=== PATIENT | female | born 1950 | race Caucasian/White ===

== ENCOUNTER → 2016-03-09 | Outpatient (CLI) | payer MEDICARE, SELFPAY ==
--- NOTE | 2016-03-09 14:10 | XR ---
EXAMINATION TYPE: XR chest 2V DATE OF EXAM: 03/09/2016 1:45 PM COMPARISON: NONE HISTORY: Preop back surgery TECHNIQUE: Frontal and lateral views of the chest are obtained. FINDINGS: There is no focal air space opacity, pleural effusion, or pneumothorax seen. The cardiac silhouette size is within normal limits. Prominent lung volume could be indicative of COPD. The osseo us structures are intact. IMPRESSION: No acute cardiopulmonary process.
== END | disposition home or self-care (01) ==
LOC: RADXRMAIN 13:33
PROVIDERS: ATTEND Orthopaedic Surgery Orthopaedic Surgery of the Spine
DX: Z01.818 Encounter for other preprocedural examination (principal)
CPT/HCPCS: 71020; 86850; 86900; 86901

== ENCOUNTER 2016-03-17 09:40 | Day surgery (SDC) | payer MEDICARE, SELFPAY ==
[2016-03-10 14:31] VITALS: BMI 28.7
--- NOTE | 2016-03-12 13:33 | CONS ---
DATE OF CONSULTATION: Mrs. Moore is a 65-year-old female who is having surgery of the lower back, lumbar L4-L5 area, by Dr. Escamilla scheduled for the of this month at [facility]. I am asked to see her regarding her medical concerns, management and clearance. Patient does have a history of hyperlipidemia, along with a previous history of non-Hodgkin's lymphoma. She also has underlying nicotine dependence. She has had previous surgeries that include tonsillectomy, hysterectomy, appendectomy and cholecystectomy in the past. There is a history also of restless leg syndrome. She does have a history of allergies to CODEINE. There is no history of myocardial infarction, diabetes, or stroke. Her home medications include Cymbalta 20 mg. She has been on aspirin 81 mg daily but has been off of that for at least the week prior to surgery, Baclofen 10 mg once or twice a day as a muscle relaxant as needed, tramadol 50 mg as needed for pain. She has also been on Plavix 75 mg but that is stopped a week prior to her surgery and ropinirole 0.25 mg at bedtime for restless leg. No complaints of chest pain, shortness of breath, fever, chills, or cough. No nausea, vomiting. No urinary or bowel symptoms. FAMILY HISTORY: Positive for heart disease, diabetes. SOCIAL HISTORY: Once again, she does smoke, but only drinks occasional alcohol. She lives locally in the [facility]. On physical examination, she is alert and oriented, pleasant female in no acute distress with a blood pressure 114/60. Her BMI is 29.1. Head and neck exam was unremarkable. Extraocular movements were intact. Neck is supple without adenopathy, thyromegaly or bruits. LUNGS: Clear to auscultation and percussion. HEART: Regular without murmurs. ABDOMEN: Soft and nontender. Breasts and pelvic exam deferred. Extremities revealed no distal edema. NEUROLOGICAL: She is alert and oriented. Cranial nerves intact. No focal deficits Her EKG revealed a regular sinus rhythm, some left axis changes, but no definite ischemic changes. There was a short MT interval noted. Laboratory values revealed random blood sugar of 122. Otherwise electrolytes were unremarkable. Her BUN was 23 creatinine 0.71. Potassium 4. GFR is 89. Her PTT was 27. Her INR was 1.1. White count 6.5 with a hemoglobin 15.2 and a platelet count of 332. She also did have a chest x-ray which showed no acute cardiopulmonary process. At this point overall impression, the patient is scheduled for lumbar surgery. Cardiovascular status appears stable. She will remain off her anti-inflammatory medicines. At this point, I see no contraindication to planned surgical involvement regarding her lower lumbar area. Please call if any questions, concerns or problems. PRESTON
[~2016-03-17 09:40] MED LIST: BACITRACIN 50,000 UNIT, POLYMYXIN B 500,000 UNIT in SODIUM CHLORIDE 0.9% IRRIGATIO 1,00... IRRIGATION ONE; DEXAMETHASONE SOD PHOSPHATE 10 MG/ML 1 ML VIAL IV ONE; HYDROmorphone 1 MG/ML 1 ML SYRINGE IVP PRN; LACTATED RINGERS 1,000 ML IV SCH; MIDAZOLAM 2 MG/2 ML VIAL IV PRN; ONDANSETRON 4 MG/2 ML VIAL IVP ONE; ceFAZolin 2 GM in SODIUM CHLORIDE 0.9% 100 ML IVPB ONE
[2016-03-17] MEDS ORDERED: LIDOCAINE 1% 20 ML VIAL (10MG/ML) FOR IV START INTRADERMA ONE (10:50)
[2016-03-17] MEDS ORDERED: MIDAZOLAM 2 MG/2 ML VIAL ONE (12:24)
[2016-03-17] MEDS ORDERED: PROPOFOL 10 MG/ML 20 ML VIAL IV ONE (12:24)
[2016-03-17] MEDS ORDERED: LIDOCAINE 0.5%-EPI 1:200,000 50 ML VIAL SQ ONE (12:24)
[2016-03-17] MEDS ORDERED: LIDOCAINE 1% INJ 10MG/ML (20 ML MDV) ONE (12:24)
[2016-03-17] MEDS ORDERED: NEOSTIGMINE 1 MG/ML 10 ML VIAL ONE (12:24)
[2016-03-17] MEDS ORDERED: GELATIN SPONGE,ABSORB (LARGE) 1 EACH SPONGE TOPICAL ONE (12:24)
[2016-03-17] MEDS ORDERED: ePHEDrine 50 MG/ML 1 ML AMP ONE (12:24)
[2016-03-17] MEDS ORDERED: methylPREDNISolone ACETATE 40 MG/ML 1 ML VIAL MISCELLANE ONE (12:24)
[2016-03-17] MEDS ORDERED: GLYCOPYRROLATE 0.2 MG/ML 2 ML VIAL ONE (12:24)
[2016-03-17] MEDS ORDERED: VECURONIUM 10 MG VIAL IV ONE (12:24)
[2016-03-17] MEDS ORDERED: THROMBIN (BOVINE) 5,000 UNIT VIAL TOPICAL ONE (12:24)
[2016-03-17] MEDS ORDERED: SUCCINYLCHOLINE CHLORIDE 100 MG/5 ML SYR IV ONE (12:24)
[2016-03-17] MEDS ORDERED: fentaNYL (PF) 50 MCG/ML 2 ML AMP ONE (12:24)
[2016-03-17] MEDS ORDERED: LACTATED RINGERS 1,000 ML IV ONE (13:33)
--- NOTE | 2016-03-17 13:47 | XR ---
EXAM TYPE: LUMBAR SPINE X RAY SERIES COMPARISON: NONE HISTORY: Intraoperative procedure FINDINGS: Single view demonstrates a metallic instrument posterior to a lower lumbar segment. IMPRESSION: 1. Intraoperative localization..
--- NOTE | 2016-03-17 13:48 | FL ---
EXAMINATION TYPE: FL guidance operating room DATE OF EXAM: 03/17/2016 1:07 PM HISTORY: Flouroscopy time 1 seconds of fluoroscopy provided. IMPRESSION: 1. Fluoroscopy time.
[2016-03-17] MEDS ORDERED: KETOROLAC 30 MG/ML 1 ML VIAL IVP PRN (13:52)
[2016-03-17] MEDS ORDERED: DIAZEPAM 5 MG TAB PO PRN (13:52)
[2016-03-17] MEDS ORDERED: HYDROmorphone 1 MG/ML 1 ML SYRINGE IVP PRN ×2 (13:52)
[2016-03-17] MEDS ORDERED: IBUPROFEN 600 MG TAB PO PRN (13:52)
[2016-03-17] MEDS ORDERED: ONDANSETRON 4 MG/2 ML VIAL IVP PRN (13:52)
[2016-03-17] MEDS ORDERED: BENZOCAINE/MENTHOL LOZENG 1 EACH LOZENGE MUCOUS MEM PRN (13:52)
[2016-03-17] MEDS ORDERED: ACETAMINOPHEN PO PRN (13:54)
[2016-03-17] MEDS ORDERED: DIPHENHYDRAMINE PO PRN (13:54)
--- NOTE | 2016-03-17 13:58 | P.OP ---
Date of Procedure: 03/17/16 Preoperative Diagnosis: Spinal stenosis L4 5, herniated nucleus pulposis L4 5, neurogenic claudication, radiculopathy Postoperative Diagnosis: same Anesthesia: GETA Pathology: none sent Condition: stable Disposition: PACU Description of Procedure: BRIEF OPERATIVE NOTE Preoperative Diagnosis: Spinal stenosis L4 5, herniated nucleus pulposus L4 5, neurogenic claudication, lower extremity radiculopathy Postoperative Diagnosis: Same Procedure: Laminectomy and decompression L4 5 bilateral foraminotomies Discectomy for decompression L4 5 Surgeon: Dr. Escamilla Questioned Documents Examiner: Omid Hogan is present throughout the entire the case persistence during positioning, dissection, exposure, visualization, and all crucial elements of the case as well as closure. Anesthesia: General anesthesia Estimated blood loss: Approximately 100 mL Complications: None apparent Components implanted: None Disposition: To recovery room in good stable condition. OPERATIVE INDICATIONS The patient has been having issues in their lower back and lower extremities. She is found have significant spinal stenosis with severe stenosis centrally in the bilateral neural foramen at L4 5 with a disc herniation L4 5. Her symptoms correlate well with the findings of stenosis and herniation at L4 5. The patient has been through conservative treatment. We discussed various treatment options including surgery, and the patient wishes to proceed with surgery We discussed the risk, patient's alternatives and benefits of surgery including but not limited to, risk of bleeding risk of infection, risk of need for further surgery, risk of decreased, loss of motion, loss of function, nerve damage, paralysis, heart attack, blindness and . OPERATIVE SUMMARY After discussing all the risks, patient alternatives and benefits at length, the patient elected to proceed with surgical intervention, signed informed consent, and presented for their procedure. The patient was seen and examined in the preoperative holding area and the surgical site was marked. The patient was given antibiotics and brought to the operating room. The patient was sedated and intubated by anesthesia in standard fashion. The patient was positioned on to the operating room table in a prone position on the appropriate frame which was well-padded and well molded. We were careful to pad any bony prominences and pressure points. We were careful to maintain the patient's cervical spine and good neutral alignment and position throughout. The patient was prepped and draped in a normal standard fashion. An appropriate timeout and keystone protocol performed. We were able to proceed with the surgery. Fluoroscopy was utilized to establish the appropriate level. The local wound area was infiltrated with local anesthetic. An incision was made at the midline longitudinally over the appropriate levels at L4 5. Dissection was taken down subcutaneously to the level of the fascia which was split midline. Dissection was taken over the lamina. Intraoperative fluoroscopy was taken which showed a marker at the appropriate level at L4 5. With the appropriate level positively confirmed, we were able to proceed with laminectomy. The wound was copiously irrigated and suctioned dry as had been done periodically throughout the case. I performed a laminectomy with a combination of curettes and a high-speed bur and Kerrison rongeurs. A small medial facetectomy was performed again further access. A partial foraminotomy was also performed. I was able to work across the midline into laminectomy and decompression centrally and at the right. Portions of the ligamentum flavum were taken down to expose the dura and traversing nerve root. I was able to mobilize the traversing nerve root and gain access to the disc space on the left. Note was made of obvious compression from the disc. Protecting the soft tissue structures, a small annulotomy was established. I was able to perform discectomy and remove any extruded disc fragments and any loose fragments from within the disc itself. There is some disc desiccation noted. I tried to preserve the disc annulus that appeared stable. There were no further extruded fragments noted. There is no evidence of dural tear or leak. Good hemostasis maintained. The wound was copiously irrigated and suctioned dry. Good decompression and discectomy was noted. We were able to proceed with closure. The fascia was closed for a watertight closure. The subcuticular tissue was closed with absorbable suture. The wound was cleaned and dried and dressed with the appropriate dressing. The drapes were broken down. The patient was gently rolled back onto their hospital bed being careful to maintain their cervical spine and good neutral alignment and position. They were woken up by anesthesia, extubated, and brought to the recovery room in good stable condition. The patient will be admitted to the hospital for observation and for appropriate postoperative care, medical management and monitoring. We will continue to follow them closely about the postoperative course.
[2016-03-17] MEDS ORDERED: SODIUM CHLORIDE 0.9% 1,000 ML IV SCH (14:00)
[2016-03-17 14:15] VITALS: TEMP 97.5
[2016-03-17 14:22] VITALS: RESP 16
[2016-03-17] MEDS ORDERED: ceFAZolin 2 GM in SODIUM CHLORIDE 0.9% 100 ML IVPB SCH (16:00)
[2016-03-17 16:38] VITALS: BP 124/67; PULSE 63
[2016-03-17] MEDS ORDERED: DILTIAZEM ORAL 60 MG TAB PO SCH (21:00)
[2016-03-18] MEDS ORDERED: CLOPIDOGREL 75 MG TAB PO SCH (09:00)
[2016-03-18] MEDS ORDERED: NON-FORMULARY DRUG (Aspirin Ec 81 MG) PO SCH (09:00)
== END 2016-03-17 16:28 | disposition home or self-care (01) ==
LOC: OR 09:40 → EDSTATUS 12:15 → OR 16:28
PROVIDERS: ATTEND Orthopaedic Surgery Orthopaedic Surgery of the Spine
DX: M51.26 Other intervertebral disc displacement, lumbar region (principal); M48.06 Spinal stenosis, lumbar region; I73.9 Peripheral vascular disease, unspecified; M54.16 Radiculopathy, lumbar region; G25.81 Restless legs syndrome; E78.5 Hyperlipidemia, unspecified; F17.200 Nicotine dependence, unspecified, uncomplicated; Z88.5 Allergy status to narcotic agent; Z79.02 Long term (current) use of antithrombotics/antiplatelets; Z79.82 Long term (current) use of aspirin; Z79.899 Other long term (current) drug therapy; Z85.72 Personal history of non-Hodgkin lymphomas
CPT/HCPCS: 63030; 72020; J2250; J1030; J2710; J0690; J2405; J2001; J3010; J0330; J2704; 86850; 86900; 86901

== ENCOUNTER → 2021-04-23 | Outpatient (CLI) | payer MEDICARE ==
--- NOTE | 2021-04-23 08:30 | US ---
EXAMINATION TYPE: US carotid duplex BILAT DATE OF EXAM: 04/23/2021 COMPARISON: NONE CLINICAL HISTORY: I65.23 LORIE CAROTID ARTERY STENOSIS. stenosis EXAM MEASUREMENTS: RIGHT: Peak Systolic Velocity (PSV) cm/sec ----- Right CCA: 93.8 ----- Right ICA: 190 ----- Right ECA: 128 ICA/CCA ratio: 2.0 RIGHT: End Diastole cm/sec ----- Right CCA: 16.1 ----- Right ICA: 37.2 ----- Right ECA: 0 LEFT: Peak Systolic Velocity (PSV) cm/sec ----- Left CCA: 94.8 ----- Left ICA: 128 ----- Left ECA: 118 ICA/CCA ratio: 1.3 LEFT: End Diastole cm/sec ----- Left CCA: 14.4 ----- Left ICA: 21.6 ----- Left ECA: 0 VERTEBRALS (direction of flow): Right Vertebral: Left Vertebral: Rhythm: Normal Intimal thickening is present. A small plaque is present at the right carotid bulb. Turbulent flow is within the common carotid artery on the right. IMPRESSION: 1. Intimal thickening and atheromatous plaquing contributing to bilateral internal carotid artery antony rowing. This is moderate on the right between 50 and 69%, closer to the lower and. Elevated velocity on the left is also moderate narrowing between 50 and 69% but at the upper end. Criteria for Assigning % of Stenosis / Diameter reduction (Estimation based on the indirect measurements of the internal carotid artery velocities (ICA PSV). 1. Normal (no stenosis)=ICA PSV < 125 cm/s: ratio < 2.0: ICA EDV<40 cm/s. 2. Less than 50% stenosis=ICA PSV < 125 cm/s: ratio < 2.0: ICA EDV<40 cm/s. 3. 50 to 69% stenosis=ICA PSV of 125 to 230 cm/s: ration 2.0 ? 4.0: ICA EDV 40-100 cm/s. 4. Greater than 70% stenosis to near occlusion= ICA PSV > 230 cm/s: ratio > 4.0: ICA EDV > 100 cm/s. 5. Near occlusion= ICA PSV velocities may be low or undetectable: variable ratio and ICA EDV. 6. Total occlusion=unable to detect flow.
--- NOTE | 2021-04-23 10:00 | ECHOF ---
Referral Reason:I10, I65.23 MEASUREMENTS -------- HEIGHT: 157.5 cm WEIGHT: 73.9 kg BP: 158/68 RVIDd: 2.5 cm (< 3.3) IVSd: 1.3 cm (0.6 - 1.1) LVIDd: 3.6 cm (3.9 - 5.3) LVPWd: 1.3 cm (0.6 - 1.1) IVSs: 1.6 cm LVIDs: 2.7 cm LVPWs: 1.7 cm LA Diam: 3.2 cm (2.7 - 3.8) LAESV Index (A-L): 20.34 ml/m Ao Diam: 2.5 cm (2.0 - 3.7) AV Cusp: 1.8 cm (1.5 - 2.6) MV EXCURSION: 14.273 mm (> 18.000) MV EF SLOPE: 33 mm/s (70 - 150) EPSS: 0.2 cm MV E Lizandro: 0.99 m/s MV DecT: 294 ms MV A Lizandro: 0.92 m/s MV E/A Ratio: 1.08 RAP: 5.00 mmHg RVSP: 23.47 mmHg FINDINGS -------- Resting bradycardia (HR<60bpm). This was a technically adequate study. The left ventricular size is normal. There is mild concentric left ventricular hypertrophy. Overa ll left ventricular systolic function is normal with, an EF between 60 - 65 %. The right ventricle is normal in size. Normal LA size by volume 22+/-6 ml/m2. The right atrium is normal in size. Interatrial and interventricular septum intact. The aortic valve is trileaflet, and appears structurally normal. No aortic stenosis or regurgitation. The mitral valve leaflets are mildly thickened. There is trace mitral regurgitation. Mild tricuspid regurgitation present. Right ventricular systolic pressure is normal at < 35 mmHg. Trace/mild (physiologic) pulmonic regurgitation. The aortic root size is normal. Normal inferior vena cava with normal inspiratory collapse consistent with estimated right atrial pre ssure of 5 mmHg. There is no pericardial effusion. CONCLUSIONS -------- 1. The left ventricular size is normal. 2. There is mild concentric left ventricular hypertrophy. 3. Overall left ventricular systolic function is normal with, an EF between 60 - 65 %. 4. The mitral valve leaflets are mildly thickened. 5. There is trace mitral regurgitation. 6. Mild tricuspid regurgitation present. 7. Trace/mild (physiologic) pulmonic regurgitation. 8. There is no pericardial effusion. OFFICE COORDINATOR: Rosana Mckeon RDCS
== END | disposition home or self-care (01) ==
LOC: RADUSWWP 07:24
PROVIDERS: ATTEND Internal Medicine
DX: I10 Essential (primary) hypertension (principal); I65.23 Occlusion and stenosis of bilateral carotid arteries
CPT/HCPCS: 93306; 93880

== ENCOUNTER → 2021-05-21 | Outpatient (CLI) | payer MEDICARE ==
[2021-05-21 08:57] LABS: African American GFR (CKD) >90 (>60 ml/min/1.73 sqM); Blood Urea Nitrogen 16 mg/dL (7-17); Non-African American GFR(CKD) 88 (>60 ml/min/1.73 sqM)
--- NOTE | 2021-05-21 10:45 | CT ---
EXAMINATION TYPE: CT angio neck DATE OF EXAM: 05/21/2021 HISTORY: Carotid Stenosis COMPARISON: Carotid Dopplex dated 04/23/2021 CT DLP: 359.20 mGycm. Automated Exposure Control for Dose Reduction was Utilized. TECHNIQUE: CTA scan of the neck is performed with IV Contrast, patient injected with 65 mL of Isovue 370, axial images are obtained, coronal and sagittal reformatted images are reviewed. 3D reconstruct ed images are created on an independent workstation and reviewed. FINDINGS: Carotid/Vascular Structures: Scattered arterial atherosclerotic calcifications. Atherosclerotic calci fication of the proximal portion of the right internal carotid artery causing about 50% stenosis yet patent distally. About 70% stenosis of the origin of the left internal carotid artery by a partially calcified atheromatous plaque yet patent distally. Normal caliber and enhancement of the remainder of the carotid arteries in the neck as well as the visualized vertebral arteries without other signific ant stenosis, occlusion, dissection or aneurysm. Other: Scattered subcentimeter bilateral cervical lymph nodes, nonspecific. COPD changes in the visua lized portion of the lungs. 5 mm nodule is seen at the posterior aspect of the right lung apex, for f ollow-up CT scan in 12 months if high risk patient. IMPRESSION: Bilateral internal carotid artery focal stenosis, more on the left side as described above.
[2021-05-21 15:27] LABS: ALT 16 U/L (8-44); AST 15 U/L (13-35); African American GFR (CKD) 86.6 (60.0-200.0); Albumin 4.3 g/dL (3.8-4.9); Albumin/Globulin Ratio 2.26 (1.60-3.17); Alkaline Phosphatase 96 U/L (41-126); BUN/Creat Ratio 19.25 Ratio (12.00-20.00); Blood Urea Nitrogen 15.4 mg/dL (9.0-27.0); Calcium 9.7 mg/dL (8.7-10.3); Carbon Dioxide 25.7 mmol/L (20.0-27.5); Chloride 107 mmol/L (96-109); Chol/HDL Ratio 4.19 Ratio; Globulin 1.9 g/dL (1.6-3.3); Glucose 105 mg/dL (70-110); LDL Cholesterol,Calculated 140.8 mg/dL (0.0-131.0); Non-African American GFR(CKD) 74.7 (60.0-200.0); Potassium 4.8 mmol/L (3.5-5.5); Sodium 142 mmol/L (135-145); Total Protein 6.2 g/dL (6.2-8.2)
== END | disposition home or self-care (01) ==
LOC: RADCTMAIN 07:49
PROVIDERS: ATTEND Internal Medicine
DX: I65.22 Occlusion and stenosis of left carotid artery (principal)
CPT/HCPCS: 80061; 80053; 82565; 84520; 70498; 36415; Q9967

== ENCOUNTER → 2021-07-15 | Outpatient (CLI) | payer MEDICARE ==
[2021-07-15 09:11] LABS: African American GFR (CKD) >90 (>60 ml/min/1.73 sqM); Blood Urea Nitrogen 17 mg/dL (7-17); Non-African American GFR(CKD) 89 (>60 ml/min/1.73 sqM)
--- NOTE | 2021-07-15 12:06 | CT ---
EXAMINATION TYPE: CT angio abdomen pelvis DATE OF EXAM: 07/15/2021 INDICATION: Embolism and thrombosis of arteries CT DLP: 2310 mGy.cm Automated Exposure Control for Dose Reduction was Utilized. TECHNIQUE AND CONTRAST: CT scan of the abdomen and pelvis is performed without and with IV Contrast, patient injected with 10 0 ml mL of Isovue 370. MIP and 3-D reconstruction images were generated on an independent workstation and reviewed. COMPARISON: None available FINDINGS: Extensive arterial atherosclerotic calcification and plaques most evident involving the infrarenal ab dominal aorta. Reduced caliber of the inferior aspect of abdominal aorta with the opacified lumen shweta suring up to 11 mm. Infrarenal abdominal aortic ectasia is seen at that level measuring 2.6 cm. Thick atherosclerotic plaque is seen at that location with suspected mural hematoma. Complete occlusion of the left common iliac artery yet opacified distally likely via collaterals. Severe stenosis of the p roximal portion of the left external iliac artery yet patent distally. Suspected stent in the right common iliac artery which appears patent. Severe stenosis at the distal aspect of the right common iliac artery along the distal end of the stent. Opacified right external i liac artery yet of reduced caliber. Atherosclerotic yet patent celiac trunk and superior mesenteric a rtery. The inferior mesenteric artery is opacified down to the pelvis yet of reduced caliber. Markedl y atherosclerotic changes and stenosis of the renal arteries yet still opacified. Previous cholecystectomy. No definite hepatic focal lesion. Dilated intrahepatic biliary tree, CHD an d CBD, likely related to postcholecystectomy status. Unremarkable pancreas, spleen and adrenals. Scat tered bilateral renal hypodensities likely representing tiny renal cysts. Grossly unremarkable urinar y bladder. Unremarkable nondistended stomach, duodenum and small bowel. Colorectal anastomosis with s oft tissue thickening extending posteriorly to the sacrum, possibly due to chronic fibrotic changes/p ostsurgical changes however underlying lesion can't be excluded. Further PET scan assessment can be c onsidered. Scattered segments of nonspecific colonic wall thickening, please correlate with colonoscopy results. Moderate fecal loading of the colon. No pathologically enlarged abdominal or pelvic lymph nodes. No sizable ascites. Previous hysterectomy. No gross adnexal mass. Mosaic-like pattern and groundglass op acity in the lung bases, nonspecific. Please correlate clinically and with pulmonary function tests. Chronic healed fractures of the inferior pubic rami. Degenerative changes of the lower lumbar spine. IMPRESSION: Extensive arterial atherosclerotic calcification with stenosis of the opacified lumen of the infraren al abdominal aorta and complete occlusion of the left common iliac artery as detailed above. Recommen d vascular surgery consultation. Other atherosclerotic changes and incidental findings with recommend ations as detailed above.
== END | disposition home or self-care (01) ==
LOC: RADCTMAIN 08:08
PROVIDERS: ATTEND Surgery
DX: I74.3 Embolism and thrombosis of arteries of the lower extremities (principal)
CPT/HCPCS: 82565; 84520; 36415; 74174; Q9967

== ENCOUNTER → 2021-09-24 | Outpatient (CLI) | payer MEDICARE ==
[2021-09-24 14:36] LABS: HCT 46.8 % (37.2-46.3); HGB 14.3 g/dL (12.0-15.0); MCH 28.4 pg (27.0-32.0); MCHC 30.6 g/dL (32.0-37.0); Mean Platelet Volume 9.8 fL (9.5-12.2); NRBC Per 100 WBC 0 /100 WBCS (0.0-0.0); Platelet Count 334 X 10*3/uL (140-440); RBC 5.03 X 10*6/uL (4.10-5.20); RDW 13.2 % (11.5-14.5); WBC 5.86 X 10*3/uL (4.50-10.00)
[2021-09-24 14:40] LABS: African American GFR (CKD) 101.7 (60.0-200.0); Anion Gap 13.1 mmol/L (10.00-18.00); Blood Urea Nitrogen 19.4 mg/dL (9.0-27.0); Carbon Dioxide 22.9 mmol/L (20.0-27.5); Non-African American GFR(CKD) 87.8 (60.0-200.0); Potassium 4.9 mmol/L (3.5-5.5)
== END | disposition home or self-care (01) ==
LOC: LABPAT 10:04
PROVIDERS: ATTEND Internal Medicine Interventional Cardiology
DX: Z01.812 Encounter for preprocedural laboratory examination (principal); R94.39 Abnormal result of other cardiovascular function study
CPT/HCPCS: 80051; 82565; 84520; 85027

== ENCOUNTER → 2021-12-07 | Outpatient (CLI) | payer MEDICARE ==
--- NOTE | 2021-12-07 12:05 | XR ---
EXAMINATION TYPE: XR chest 2V DATE OF EXAM: 12/07/2021 COMPARISON: Chest x-ray 03/09/2016 HISTORY: COPD, cough TECHNIQUE: Frontal and lateral views of the chest are obtained. FINDINGS: There is no focal air space opacity, pleural effusion, or pneumothorax seen. The cardiac silhouette size is within normal limits. Aorta is dense. The osseous structures are intact, there is thoracic spondylosis. IMPRESSION: No acute cardiopulmonary process.
== END | disposition home or self-care (01) ==
LOC: RADXRMAIN 10:01
PROVIDERS: ATTEND Internal Medicine
DX: J44.9 Chronic obstructive pulmonary disease, unspecified (principal)
CPT/HCPCS: 71046

== ENCOUNTER → 2023-09-16 | Outpatient (CLI) | payer MEDICARE, OTHER ==
--- NOTE | 2023-09-19 08:27 | MM ---
Reason for Exam: Screening (asymptomatic). Last mammogram was performed 10 year(s) and 6 month(s) ago. Patient History: Menarche at age 13. First Full-Term at age 20. Hysterectomy at age 38. Postmenopausal. Other cancer. Colorectal cancer, age 51. Estrogen for 6 years, 4 months. Risk Values: Lashae 5 year model risk: 1.6%. NCI Lifetime model risk: 4.1%. Prior Study Comparison: 06/29/2001 Right Special View Mammogram, [facility]. 07/24/2001 Right Diagnostic Mammogram, [facility]. 01/24/2002 Bilateral Diagnostic Mammogram, [facility]. 05/23/2003 Bilateral Diagnostic Mammogram, [facility]. 12/11/2008 Bilateral Diagnostic Mammogram, [facility]. 01/05/2011 Bilateral Screening Mammogram, [facility]. 03/07/2013 Bilateral Screening Mammogram, [facility]. Tissue Density: The breasts are heterogeneously dense, which may obscure small masses. Findings: Analyzed By CAD. There is no suspicious group of microcalcifications or new suspicious mass in either breast. Overall Assessment: Benign, BI-RAD 2 Management: Screening Mammogram of both breasts in 1 year. . Patient should continue monthly self-breast exams. A clinical breast exam by your physician is recommended on an annual basis. This exam should not preclude additional follow-up of suspicious palpable abnormalities. Note on Lashae scores and lifetime risk: 1. A Lashae score greater than 3% is considered moderate risk. If this is the case, consider specialist referral to assess eligibility for a risk reducing agent. 2. If overall lifetime risk for the development of breast cancer is 20% or higher, the patient may qualify for future screening with alternating mammogram and breast MRI. Electronically signed and approved by: Bryson Munguia M.D. Radiologis
== END | disposition home or self-care (01) ==
LOC: RADMAMWWP 09:54
PROVIDERS: ATTEND Internal Medicine
DX: Z12.31 Encounter for screening mammogram for malignant neoplasm of breast (principal); R92.333 Mammographic heterogeneous density, bilateral breasts; Z78.0 Asymptomatic menopausal state
CPT/HCPCS: 77063; 77067

== ENCOUNTER → 2023-12-09 | Outpatient (CLI) | payer MEDICARE ==
--- NOTE | 2023-12-09 13:09 | CTL ---
EXAMINATION TYPE: CT Low Dose Lung DATE OF EXAM ORDERED: 12/09/2023 HISTORY: Nicotine dependence, quit smoking one year ago. Lung cancer screening CT DLP: 88.[address] CTDI: 2.4 mGy Automated exposure control for dose reduction was used. SCREENING VISIT: First screening visit COMPARISON: Chest radiograph 12/07/2021 TECHNIQUE: Low dose computed tomography scan was performed through the chest at 1 mm thick sections a nd reconstructed images in multiple planes at 1 mm and [address] DIAGNOSTIC QUALITY: Satisfactory FINDINGS: Nodules: Left upper lobe 2.5 mm pulmonary nodule (series 6, image 18). Peripheral left lower lobe 3.3 mm pulmonary nodule (series 6, image 38). Posterior right upper lobe 4.6 mm pulmonary nodule (series 6, image 20). LUNGS: COPD: Severity: Minimal Fibrosis: Severity: None Lymph nodes: None Other findings: Linear scarring or atelectasis within the medial aspect of the right middle lobe and lingula. RIGHT PLEURAL SPACE: Effusion: None Calcification: None Thickening: None Pneumothorax: None LEFT PLEURAL SPACE: Effusion: None Calcification: None Thickening: None Pneumothorax: None HEART: Heart Size: Normal Coronary Calcification: Moderate Pericardial Effusion: None OTHER FINDINGS: Upper abdomen: Bilateral renal calcifications which may be nonobstructive calculi versus vascular zina cifications. Bony thorax: Multilevel degenerative disc disease. Supraclavicular region: None Other: Moderate atherosclerotic calcification of the aorta and its branches. IMPRESSION: Few pulmonary nodules measuring less than [address] LUNG RAD AND CT CHEST RECOMMENDATION: Lung-Rad 2 Benign Appearance or Behavior: Continue annual sc reening with LDCT in 12 months. S Modifier (other clinically significant findings): None [facility], , 12/09/2023 1:07 PM
== END | disposition home or self-care (01) ==
LOC: RADCTMAIN 12:37
PROVIDERS: ATTEND Internal Medicine
CPT/HCPCS: 71271

== ENCOUNTER → 2023-12-16 | Outpatient (CLI) | payer MEDICARE ==
--- NOTE | 2023-12-19 17:33 | BD ---
EXAMINATION TYPE: Axial Bone Density DATE OF EXAM: 12/16/2023 CLINICAL HISTORY: 72 years old Female. ICD-10 CODE: M85.852 DISORDER OF BONE Height: 61 in Weight: 159 lbs FRAX RISK QUESTIONS: History of Fracture in Adulthood: pelvis fx age 30 Secondary Osteoporosis: 3. Menopause before 45: partial hysterectomy age 38 RISK FACTORS HISTORY OF: Surgery to Spine: pt has surgery to l spine 2014 MEDICATIONS: Thyroid Medications: yes Which medication: Levothyroxine How Lon years EXAM MEASUREMENTS: Bone mineral densitometry was performed using the XbyMe System. Bone mineral density about the R hip (g/cm2): 0.806 Bone mineral density about the L hip (g/cm2): 0.817 T Score values are as follows: -----R Neck: -1.9 -----L Neck: -1.6 -----R Total: -1.6 -----L Total: -1.5 Z Score values are as follows: -----R Neck: -0.2 -----L Neck: 0.0 -----R Total: -0.2 -----L Total: -0.1 Bone mineral density baseline Bone mineral density about the R Wrist (g/cm2): 0.541 T Score values are as follows: -----Dist. R+U: -2.5 -----Prox. R+U: -2.3 -----Radius total: -2.2 Z Score values are as follows: -----Dist. R+U: -0.4 -----Prox. R+U: -0.2 -----Radius total: -0.1 Bone mineral density baseline FRAX%s: The graph provided illustrates a 18.3% chance for a major osteoporotic fx and a 3.7% chance f or the hips probability for fx in 10 years time. IMPRESSION: Osteopenia (T Score between -2.5 and -1). There is slightly increased risk of fracture and the patient may be considered for treatment. Re-Screen 2-5 years. NOTE: T-SCORE=SD OF THE YOUNG ADULT MEAN. [facility], , 12/19/2023 5:31 PM
== END | disposition home or self-care (01) ==
LOC: RADBDWWP 15:06
PROVIDERS: ATTEND Internal Medicine
CPT/HCPCS: 77080

== ENCOUNTER → 2024-01-27 | Outpatient (CLI) | payer MEDICARE ==
[2024-01-27 14:21] LABS: African American GFR (CKD) 82 (>60 ml/min/1.73 sqM); Blood Urea Nitrogen 23 mg/dL (7-17); Non-African American GFR(CKD) 71 (>60 ml/min/1.73 sqM)
--- NOTE | 2024-01-27 19:45 | CT ---
EXAMINATION TYPE: CT abdomen pelvis w con DATE OF EXAM: 01/27/2024 4:29 PM COMPARISON: CT abdomen pelvis most recent from 2521. CLINICAL INDICATION: Female, 73 years old with history of R31.0 GROSS HEMATURIA N20.0 CALCULUS OF KID COLLEEN; gross hematuria TECHNIQUE: Axial CT abdomen pelvis w con;Sagittal and coronal reformats were created on a separate w orkstation. Contrast used:100ml mL of Isovue 300 with IV Contrast, (none if empty) Oral contrast used: with Oral Contrast (none if empty) CT DLP: 1305 mGycm, Automated exposure control for dose reduction was used. FINDINGS: LOWER CHEST: Unremarkable ABDOMEN LIVER: Unremarkable GALLBLADDER AND BILE DUCTS: Unremarkable. PANCREAS: Unremarkable. SPLEEN: Unremarkable. ADRENAL GLANDS: Unremarkable. KIDNEYS AND URETERS: No evidence of hydronephrosis or obstructing renal calculus. Bilateral nonobstru cting calculi versus vascular calcifications are present. The ureters are unremarkable. Simple appea ring renal cysts. PELVIS BLADDER: No evidence for wall thickening or mass given limitations of exam. REPRODUCTIVE: Unremarkable. ABDOMEN & PELVIS STOMACH AND BOWEL: No evidence of bowel obstruction. PERITONEUM/RETROPERITONEUM: No evidence of pneumoperitoneum or free fluid. VASCULATURE: No evidence of aortic aneurysm. Ectasia of the infrarenal abdominal aorta with mural thr ombus measuring up to 24 mm. Severe atherosclerosis of the distal aorta right common iliac artery mansi nt which appears in patent. The left common iliac artery appears occluded extending to the bifurcatio n with reconstitution. MUSCULOSKELETAL: No acute osseous abnormalities LYMPH NODES: No gross evidence for lymphadenopathy. SOFT TISSUE/ABDOMINAL WALL: Fat-containing umbilical hernia. IMPRESSION: 1. Hyperemia of the bladder mucosa correlate with urinalysis for cystitis. No solid masses or urothe lial thickening is identified. 2. Bilateral nonobstructing calculi versus vascular calcifications are present. 3. Severe atherosclerosis of the distal aorta with ectasia with mural thrombus. 4. Right common iliac stent graft which appears patent. 5. 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 [facility], , 01/27/2024 7:42 PM
== END | disposition home or self-care (01) ==
LOC: RADCTMAIN 13:45
PROVIDERS: ATTEND Urology
DX: N20.0 Calculus of kidney (principal); N32.89 Other specified disorders of bladder; I70.0 Atherosclerosis of aorta; I74.5 Embolism and thrombosis of iliac artery; Z95.820 Peripheral vascular angioplasty status with implants and grafts
CPT/HCPCS: 82565; 84520; 74177; 36415; Q9967

== ENCOUNTER 2024-02-07 07:59 | Day surgery (SDC) | payer MEDICARE ==
[2024-02-07] MEDS ORDERED: LIDOCAINE 1% (10MG/ML) FOR IV START INTRADERMA PRN (08:14)
[2024-02-07] MEDS ORDERED: LACTATED RINGERS 1,000 ML IV SCH (08:14)
[2024-02-07 08:28] VITALS: TEMP 97.1
[2024-02-07] MEDS ORDERED: PROPOFOL 10 MG/ML 20 ML VIAL IV ONE (08:28)
[2024-02-07] MEDS: IV FLUID CONTINUATION 1,000 ML IV ONE (08:31)
--- NOTE | 2024-02-07 08:34 | P.GSHP ---
History of Present Illness H&P Date: 02/07/24 Chief Complaint: Colon cancer screening 73-year-old female here for colonoscopy. Last colonoscopy 10 years or more. Patient with personal history of rectal cancer. Had apparently some stricturing after the surgery requiring dilations. No bowel complaints currently. Recent diagnosis of bladder cancer. Past Medical History Past Medical History: Atrial Fibrillation, Cancer, Hypertension, Osteoarthritis (OA), Thyroid Disorder, Vascular Disorder Additional Past Medical History / Comment(s): NON HODGKINS LYMPHOMA (2000), COLON CANCER WITH BOWEL RESECTION (2002) , LOOSE STOOLS SINCE SURGERY- states comes and goes, HX OF KIDNEY STONES, hx. ANEMIA-not currently, hx. gastric ulcer, recent dx. bladder cancer-having surgery next Tuesday @[facility] History of Any Multi-Drug Resistant Organisms: None Reported Past Surgical History: Appendectomy, Bowel Resection, Heart Catheterization With Stent, Hysterectomy, Tonsillectomy Additional Past Surgical History / Comment(s): LITHOTRIPSY, REMOVAL OF ADHESIONS AFTER BOWEL SURGERY. 2 coronary stents, stent right groin Past Anesthesia/Blood Transfusion Reactions: No Reported Reaction, Family History of Problems w/ Anesthesia Additional Past Anesthesia/Blood Transfusion Reaction / Comment(s): SISTER=PONV Date of Last Stent Placement:: 2021 Smoking Status: Former smoker - Past Family History Father Family Medical History: Diabetes Mellitus Mother Family Medical History: Coronary Artery Disease (CAD) Medications and Allergies Home Medications Medication Instructions Recorded Confirmed Type Diltiazem Oral [Cardizem*] 60 mg PO BID 11/15/14 02/07/24 History Acetaminophen/Diphenhydramine 2 tab PO DIRECTED PRN 03/10/16 02/07/24 History [Tylenol PM Extra Strength] traMADol HCL [Ultram] 50 mg PO Q6HR PRN #90 tab 03/17/16 02/07/24 Rx Levothyroxine Sodium [Synthroid] 50 mcg PO DAILY 10/13/21 02/07/24 History Nitroglycerin Sl Tabs [Nitrostat] 0.4 mg SUBLINGUAL Q5M PRN #25 tab 10/14/21 02/07/24 Rx Aspirin 325 mg PO DAILY 02/03/24 02/07/24 History Evolocumab [Repatha Sureclick] 140 mg SQ Q14D 02/03/24 02/07/24 History Valsartan [Diovan] 80 mg PO DAILY 02/03/24 02/07/24 History Allergies Allergy/AdvReac Type Severity Reaction Status Date / Time codeine Allergy Unknown Hallucinati Verified 02/07/24 08:15 ons morphine AdvReac Vomiting Verified 02/07/24 08:15 Surgical - Exam Vital Signs Temp Pulse Resp BP Pulse Ox 97.1 F L 70 14 155/70 98 02/07/24 08:10 02/07/24 08:10 02/07/24 08:10 02/07/24 08:10 02/07/24 08:10 The patient denies any acute changes in vision or hearing, no dysphagia or chastity nophagia, no chest pain or shortness of breath, no dysuria or hematuria, no headache, no runny nose, no rectal bleeding or melena, no unexplained weight loss Assessment and Plan (1) Colon cancer screening Narrative/Plan: Will proceed with colonoscopy at this time. Current Visit: Yes Status: Acute Code(s): Z12.11 - ENCOUNTER FOR SCREENING FOR MALIGNANT NEOPLASM OF COLON SNOMED Code(s): 917303997
--- NOTE | 2024-02-07 08:55 | P.PCN ---
Date of Procedure: 02/07/24 Procedure(s) Performed: PREOPERATIVE DIAGNOSIS: History of rectal cancer, screening POSTOPERATIVE DIAGNOSIS: Numerous polyps PROCEDURE: Colonoscopy with snare polypectomy ANESTHESIA: MAC SURGEON: William Moulton M.D. SPECIMENS: Polyps ENDOSCOPIC PROCEDURE: The patient was placed on the endoscopy table in the left decubitus position. The Olympus colonoscope was inserted into the anus and passed under direct visualization to the base of the cecum. The appendiceal orifice was visualized. From that point the scope was slowly withdrawn inspecting all surfaces carefully. There were no neoplastic inflammatory or polypoid lesions throughout the cecum. In the ascending colon there were 4 separate polyps removed using the snare with cautery technique. In the transverse colon there were 3 polyps removed using the snare with cautery technique. In the descending colon there were 2 polyps removed using the snare with cautery technique. The colorectal anastomosis was patent. The rectum appeared normal. There was no visible diverticulosis. Digital rectal examination was normal. The patient was taken to the recovery room in stable condition per anesthesia guidelines. RECOMMENDATIONS: Await biopsy results. Recommend repeat colonoscopy 2 to 3 years.
[2024-02-07 09:02] VITALS: RESP 16
[2024-02-07 09:13] VITALS: BP 123/64; PULSE 62
== END 2024-02-07 09:33 | disposition home or self-care (01) ==
LOC: ORWHC2ENDO 07:59
PROVIDERS: ATTEND Surgery
DX: Z12.11 Encounter for screening for malignant neoplasm of colon (principal); D12.2 Benign neoplasm of ascending colon; D12.3 Benign neoplasm of transverse colon; D12.4 Benign neoplasm of descending colon; I10 Essential (primary) hypertension; I48.91 Unspecified atrial fibrillation; M19.90 Unspecified osteoarthritis, unspecified site; E03.9 Hypothyroidism, unspecified; Z85.048 Personal history of other malignant neoplasm of rectum, rectosigmoid junction, and anus; Z85.51 Personal history of malignant neoplasm of bladder; Z87.891 Personal history of nicotine dependence; Z88.5 Allergy status to narcotic agent; Z90.49 Acquired absence of other specified parts of digestive tract; Z90.710 Acquired absence of both cervix and uterus; Z87.11 Personal history of peptic ulcer disease; Z95.5 Presence of coronary angioplasty implant and graft; Z79.890 Hormone replacement therapy; Z87.442 Personal history of urinary calculi; Z85.72 Personal history of non-Hodgkin lymphomas
CPT/HCPCS: 88305; 45385; J2704